=== PATIENT | male | born 1945 | race African-American/Black ===

== ENCOUNTER 2018-03-25 08:23 | Inpatient (IN) | payer OTHER ==
[~2018-03-25] VITALS: Ht 185.4 cm; Wt 105.2 kg
[2018-03-25] MEDS ORDERED: SODIUM CHLORIDE 0.9% 1,000 ML IV ONE ×2 (09:06→09:54)
[2018-03-25 09:32] LABS: EOSINOPHILS % 1.4 % (0.0-5.0); HEMATOCRIT. 50.1 % (42.0-52.0); HEMOGLOBIN. 16.4 g/dL (14.0-18.0); LYMPHOCYTES % 51.7 % (20.0-50.0); MEAN CORPUSCULAR VOLUME 85.5 fL (80.0-94.0); MEAN PLATELET VOLUME 10.4 fl (7.4-10.4); MONOCYTES % 9.5 % (2.0-8.0); NEUTROPHILS % 35.4 % (40.0-76.0); PLATELET 225 x1000/uL (130-400); RED BLOOD CELL COUNT 5.86 mill/uL (4.7-6.1); RED CELL DISTRIBUTION WIDTH 12.9 % (11.6-14.6)
[2018-03-25 09:33] LABS: CHLORIDE 90 mEq/L (98-107)
[2018-03-25 09:34] LABS: PROTHROMBIN TIME 10.7 sec (9.4-11.6)
[2018-03-25 09:41] LABS: BETA HYDROXYBUTYRATE 1.6 mMol/L (0.0-0.3)
[2018-03-25 09:50] LABS: CLARITY URINE CLEAR (CLEAR); KETONES URINE TRACE (NEGATIVE); LEUKOCYTE ESTERASE URINE NEGATIVE (NEGATIVE); NITRITE URINE NEGATIVE (NEGATIVE); OCCULT BLOOD URINE NEGATIVE (NEGATIVE); PROTEIN URINE NEGATIVE (NEGATIVE); SPECIFIC GRAVITY URINE 1.027 (1.005-1.030); UROBILINOGEN URINE 0.2 E.U./dL (0.2-1.0)
[2018-03-25 09:51] LABS: COLOR URINE YELLOW (YELLOW)
[2018-03-25] MEDS ORDERED: INSULIN REGULAR (HUMULIN R) 300UNITS/3ML SUBCUT ONE (10:00)
[2018-03-25 10:12] LABS: BG BASE EXCESS -2.3 mmol/L (-2.0-2.0); BG CARBOXYHEMOGLOBIN 1.2 % (0.5-1.5); BG DEOXYHEMOGLOBIN 5.6 % (0.0-5.0); BG FRACTION INSPIRED OXYGEN 21; BG HCO3 ACT 23.8 mmol/L (22.0-26.0); BG METHEMOGLOBIN 0.4 % (0.0-1.5); BG OXYGEN SATURATION 94.3 % (92.0-98.5); BG OXYHEMOGLOBIN 92.8 % (94.0-97.0); BG PCO2 45.6 mmHg (35.0-45.0); BG PH 7.335 (7.350-7.450); BG PO2 75.1 mmHg (75.0-100.0); BG SAMPLE SITE RIGHT RADIAL; BG TOTAL HEMOGLOBIN 16.3 g/dL (12.0-18.0); BG VENT MODE ROOM AIR
[2018-03-25] MEDS ORDERED: DOCUSATE SODIUM 100MG CAPSULE PO PRN (11:00)
[2018-03-25] MEDS ORDERED: MAGNESIUM/ALUMINUM HYDROXIDE/SIMETHICONE 30ML UDC PO PRN (11:00)
[2018-03-25] MEDS ORDERED: DIPHENHYDRAMINE 50MG/ML VIAL IV PRN (11:00)
[2018-03-25] MEDS ORDERED: HYDROCODONE/ACETAMINOPHEN 5/325MG TABLET PO PRN (11:00)
[2018-03-25] MEDS ORDERED: NA PHOS,M-B/NA PHOS,DI-BA ENEMA 118ML PR PRN (11:00)
[2018-03-25] MEDS ORDERED: CLONIDINE 0.1MG TABLET PO PRN (11:00)
[2018-03-25] MEDS ORDERED: ACETAMINOPHEN 325MG TABLET PO PRN (11:00)
[2018-03-25] MEDS ORDERED: ONDANSETRON HCL 4MG/2ML VIAL IV PRN (11:00)
[2018-03-25] MEDS ORDERED: DEXTROSE 50% WATER 50ML SYRINGE IV PRN (11:15)
[2018-03-25] MEDS ORDERED: ATEN-42 MT (11:42)
[2018-03-25] MEDS ORDERED: FURO-152 MT (11:42)
[2018-03-25 11:43] VITALS: BP 112/78
[2018-03-25] MEDS: BLOOD SUGAR DIAGNOSTIC STRIP TEST SCH ×3 (12:12→21:42)
[2018-03-25] MEDS ORDERED: INSULIN LISPRO 100 UNITS/ML SUBCUT NR (12:30)
[2018-03-25] MEDS: INSULIN LISPRO 100 UNITS/ML SUBCUT SCH ×3 (13:15→21:41)
[2018-03-25] MEDS: ENOXAPARIN 40MG/0.4ML SYR SUBCUT SCH (13:17)
[2018-03-25] MEDS: SODIUM CHLORIDE 0.9% 1,000 ML IV SCH (13:30)
[2018-03-25] MEDS ORDERED: ATEN50TA MT (15:08)
[2018-03-25] MEDS ORDERED: ASPI-1159 MT (15:08)
[2018-03-25] MEDS ORDERED: LISI-649 MT (15:08)
[2018-03-25] MEDS ORDERED: AMLO5TAB88 MT (15:08)
[2018-03-25 20:00] VITALS: BP 96/62
[2018-03-25] MEDS ORDERED: INSULIN GLARGINE UD 100 UNITS/ML SYR SUBCUT SCH (22:00)
[2018-03-26] VITALS: BP 125/93
[2018-03-26] MEDS: SODIUM CHLORIDE 0.9% 1,000 ML IV SCH ×2 (01:03→13:31)
[2018-03-26 04:00] VITALS: BP 110/73
[2018-03-26] MEDS: BLOOD SUGAR DIAGNOSTIC STRIP TEST SCH ×3 (06:43→17:20)
[2018-03-26 07:37] LABS: CHLORIDE 106 mEq/L (98-107)
[2018-03-26 07:43] LABS: BASOPHILS % 1.1 % (0.0-2.0); HEMATOCRIT. 47.9 % (42.0-52.0); HEMOGLOBIN. 16.2 g/dL (14.0-18.0); LYMPHOCYTES % 64.2 % (20.0-50.0); MEAN CORPUSCULAR HEMOGLOBIN 27.9 pg (28.0-32.0); MEAN CORPUSCULAR VOLUME 82.5 fL (80.0-94.0); MEAN PLATELET VOLUME 10.2 fl (7.4-10.4); NEUTROPHILS % 23.7 % (40.0-76.0); PLATELET 196 x1000/uL (130-400); RED BLOOD CELL COUNT 5.81 mill/uL (4.7-6.1); RED CELL DISTRIBUTION WIDTH 13.1 % (11.6-14.6)
[2018-03-26 08:32] VITALS: BP 116/82
[2018-03-26] MEDS ORDERED: ASPIRIN 81MG EC TABLET PO SCH (09:00)
[2018-03-26] MEDS: ENOXAPARIN 40MG/0.4ML SYR SUBCUT SCH (09:37)
[2018-03-26] MEDS: INSULIN LISPRO 100 UNITS/ML SUBCUT SCH ×3 (09:38→17:50)
[2018-03-26 12:32] VITALS: BP 119/88
[2018-03-26] MEDS ORDERED: INSULIN LISPRO 100 UNITS/ML SUBCUT NR (15:45)
[2018-03-26] MEDS ORDERED: INSULIN GLARGINE UD 100 UNITS/ML SYR SUBCUT NR (16:00)
[2018-03-26 16:27] VITALS: BP 117/82
[2018-03-26 18:23] VITALS: BP 122/88
[2018-03-26] MEDS ORDERED: ENOXAPARIN 30MG/0.3ML SYR SUBCUT SCH (21:00)
== END 2018-03-26 19:00 | disposition home or self-care (01) | DRG 638 ==
LOC: ER 08:23 → 6WST 10:19 → EDBEDREQ 10:24 → EDBEDREQTM 10:24 → ENRESERV 10:33 → SUPCPDRO 10:51
PROVIDERS: ADMIT Hospitalist; ATTEND Hospitalist
DX: E11.65 Type 2 diabetes mellitus with hyperglycemia (principal); E87.1 Hypo-osmolality and hyponatremia; I10 Essential (primary) hypertension; Z91.14 Patient's other noncompliance with medication regimen; Z79.84 Long term (current) use of oral hypoglycemic drugs
CPT/HCPCS: 36415; 36600; 70450; 80053; 81003; 82010; 82375; 82805; 82962; 83735; 84443; 84484; 85025; 85610; 93005; 96361; 96372; 99291; J1650; J1815; J7030